=== PATIENT | female | born 1995 | race Caucasian/White ===

== ENCOUNTER 2018-12-29 11:28 | Inpatient (IN) | payer BC ==
[~2018-12-29] VITALS: Ht 170.2 cm; Wt 139.5 kg
[2018-12-30] VITALS (16 sets, daily range): BP systolic 100–136; BP diastolic 54–81; PULSE 69–88; TEMP 97.9
--- NOTE | 2018-12-30 18:50 | NUR ---
PT TO UNIT AMBULATORY WITH SPOUSE FOR SCHEDULED CYTOTEC INDUCTION. PT ORIENTED TO ROOM, CHANGED INTO GOWN. VS OBTAINED, SVE PERFORMED AND EFMX2 APPLIED.
[2018-12-30 22:13] LABS: BASO % 0.3 % (0.0-2.0); EOS % 0.3 % (0-4.0); GRAN # 8.2 (1.4-6.5); GRAN % 72.1 % (42.2-75.2); HEMOGLOBIN 11.4 g/dl (12.5-16.0); LYMPH # 2.5 (1.2-3.4); LYMPH % 22.1 % (20.0-51.0); MEAN CELL VOLUME 85 fl (80.0-100.0); MEAN CORPUSCULAR HEMOGLOBIN 27 pg (27.0-31.0); MEAN CORPUSCULAR HGB CONC 32 g/dl (33.0-37.0); MEAN PLATELET VOLUME 11.8 fl (7.4-10.4); MONO # 0.6 (0.1-0.6); MONO % 4.9 % (1.7-9.3); PLATELET COUNT 280 K/mm3 (130-400); RED BLOOD COUNT 4.23 M/mm3 (4.10-5.30); REDCELL DISTRIBUTION WIDTH-CV 15.2 % (11.5-14.5)
[2018-12-30 22:17] LABS: HEMATOCRIT 35.9 % (37.0-47.0)
[2018-12-31] VITALS (76 sets, daily range): BP systolic 88–148; BP diastolic 51–83; PULSE 57–86; TEMP 97.3–98.2
--- NOTE | 2018-12-31 01:15 | NUR ---
DIFFICULTY TRACING CONTRACTION PATTERN DUE TO MATERNAL POSITION IN RIGHT LATERAL. TOCO ADJUSTED.
--- NOTE | 2018-12-31 01:30 | NUR ---
CONTINUED DIFFICULTY TRACING CONTRACTION PATTERN DUE TO MATERNAL POSITION. PT STATES "FEELING" CONTRACTIONS BUT THEY ARE NOT PAINFUL.
--- NOTE | 2018-12-31 02:00 | NUR ---
[id number]- DIFFICULTY TRACING FHT'S DUE TO MATERNAL POSITION CHANGE TO LEFT LATERAL. THIS NURSE IN ROOM TO ADJUST US. FM AUDIBLE DURING THIS TIME. CONTINUED DIFFICULTY TRACING CONTRACTION PATTERN DUE TO MATERNAL POSITION. TOCO ADJUSTED.
--- NOTE | 2018-12-31 06:30 | NUR ---
0615- FHR tracing intermittent due to maternal position. 0625- EFM and TOCO off, Pt up to bathroom. Plan to start Pitocin per MD order once Pt returns.
--- NOTE | 2018-12-31 08:00 | NUR ---
0746- Pt repositions self to RL, FHR tracing scratchy and intermittent and TOCO not tracing well. RN at bedside, adjusting monitor.
--- NOTE | 2018-12-31 08:30 | NUR ---
0823- TOCO adjusted, not tracing well due to maternal position.
--- NOTE | 2018-12-31 08:45 | NUR ---
0840- FHR tracing intermittent due to maternal position, RN at bedside, adjusting monitor. Directed Pt to reposition slightly after approximately 7mins of trying to find FHT. TOCO adjusted at this time.
--- NOTE | 2018-12-31 14:00 | NUR ---
1354- RN at bedside, Pt repositioned to , IVF bolus initiated, SVE. Pitocin off. O2 on via mask at 10L. Pt reassured.
--- NOTE | 2018-12-31 16:00 | NUR ---
1550- Pt complete/+2. Pt and room prepped for delivery. Talamantes out without difficulty. 1558- Pt begins pushing with UCs, great effort and progress noted.
--- NOTE | 2018-12-31 16:30 | NUR ---
1607- Pitocin restarted at 2mu due to irregular UCs. Pt continues pushing with UCs. 1617- Pt instructed to stop pushing, going to wait for Dr Mckeon to come for delivery. Pitocin off. Pt comfortable with epidural.
--- NOTE | 2018-12-31 16:45 | NUR ---
163- Dr Mckeon and Alcon, Nursery RN at bedside. Pt and room prepped for delivery. 1640- IUPC removed without difficulty. Pt pushes with UCs. 1644- of viable male . Infant to mother's chest where dried and stimulated, tended to by Nursery RN. Cord clamped and cut. Cord segment obtained, cord blood obtained. 1648- Spontaneous delivery of placenta, Pitocin started at 333ml/hr. Fundus massaged to firm. First degree laceration repaired by . Pericare completed, ice pack to vagina. Pt repositioned to high-fowlers, baby skin-2-skin.
[2019-01-01 00:10] VITALS: BP 104/42; PULSE 74; TEMP 98.3
[2019-01-01 04:05] VITALS: BP 129/83; PULSE 81; TEMP 97.6
[2019-01-01 07:40] VITALS: BP 118/72; PULSE 77; TEMP 97.6
[2019-01-01 12:50] VITALS: BP 147/86; PULSE 68; TEMP 98.4
[2019-01-01 16:10] VITALS: BP 129/72; PULSE 89; TEMP 97.7
[2019-01-01 20:30] VITALS: BP 133/81; PULSE 96
[2019-01-02 07:30] VITALS: BP 131/83; PULSE 83; TEMP 97.7
--- NOTE | 2019-01-02 09:15 | NUR ---
0915- This RN assisted mom with breast pump set-up. Pt encouraged to pump every 3hrs for 20mins. Questions answered and Pt verbalizes understanding.
[2019-01-02] MEDS ORDERED: IBU600 MG PO (09:24)
== END 2019-01-02 11:15 | disposition home or self-care (01) | DRG 807 ==
LOC: OB 11:28 → LDR 12-30 18:47 → OB 12-30 18:47 → LDR 12-30 18:48 → OB 12-31 07:04
PROVIDERS: ADMIT Obstetrics & Gynecology
PROC: 10E0XZZ Delivery of Products of Conception, External Approach (ICD-10-PCS; principal; 2018-12-31)
PROC: 3E0P7VZ Introduction of Hormone into Female Reproductive, Via Natural or Artificial Opening (ICD-10-PCS; 2018-12-31)
PROC: 10907ZC Drainage of Amniotic Fluid, Therapeutic from Products of Conception, Via Natural or Artificial Opening (ICD-10-PCS; 2018-12-31)
PROC: 3E033VJ Introduction of Other Hormone into Peripheral Vein, Percutaneous Approach (ICD-10-PCS; 2018-12-31)
PROC: 0HQ9XZZ Repair Perineum Skin, External Approach (ICD-10-PCS; 2018-12-31)
PROC: 10H07YZ Insertion of Other Device into Products of Conception, Via Natural or Artificial Opening (ICD-10-PCS; 2018-12-31)
PROC: 10H073Z Insertion of Monitoring Electrode into Products of Conception, Via Natural or Artificial Opening (ICD-10-PCS; 2018-12-31)
DX: O13.4 Gestational [pregnancy-induced] hypertension without significant proteinuria, complicating childbirth (principal); Z37.0 Single live birth; O99.214 Obesity complicating childbirth; O70.0 First degree perineal laceration during delivery; Z3A.39 39 weeks gestation of pregnancy; O69.81X0 Labor and delivery complicated by cord around neck, without compression, not applicable or unspecified; E66.01 Morbid (severe) obesity due to excess calories
CPT/HCPCS: J2590; J2791; J7120

== ENCOUNTER 2019-11-24 18:46 | Inpatient (IN) | payer BC ==
[~2019-11-24] VITALS: Ht 170.2 cm; Wt 130.0 kg
[~2019-11-24 18:46] MED LIST: IBU600 MG PO
[2019-11-24 20:39] LABS: BASO # 0.1 (0.0-0.2); BASO % 0.6 % (0.0-2.0); EOS # 0.1 (0.0-0.7); EOS % 0.6 % (0-4.0); GRAN # 6.7 (1.4-6.5); GRAN % 73.7 % (42.2-75.2); HEMATOCRIT 46.3 % (37.0-47.0); HEMOGLOBIN 14.6 g/dl (12.5-16.0); LYMPH # 1.7 (1.2-3.4); MEAN CELL VOLUME 85 fl (80.0-100.0); MEAN CORPUSCULAR HEMOGLOBIN 27 pg (27.0-31.0); MEAN CORPUSCULAR HGB CONC 32 g/dl (33.0-37.0); MEAN PLATELET VOLUME 10.8 fl (7.4-10.4); MONO # 0.5 (0.1-0.6); MONO % 5.8 % (1.7-9.3); PLATELET COUNT 318 K/mm3 (130-400); RED BLOOD COUNT 5.48 M/mm3 (4.10-5.30); REDCELL DISTRIBUTION WIDTH-CV 14.3 % (11.5-14.5)
[2019-11-24 20:51] LABS: ALBUMIN 4.5 gm/dL (3.5-5.0); BILIRUBIN,TOTAL 3.7 mg/dL (0.0-1.0); C-REACTIVE PROTEIN 0.9 mg/dL (0.0-0.9); CALCIUM 9.5 mg/dL (8.4-10.2); CREATININE, serum 0.71 (0.52-1.25); POTASSIUM 3.6 mmol/L (3.4-5.0); TOTAL PROTEIN 8.1 gm/dL (6.4-8.2)
[2019-11-24 22:45] LABS: COLLECTION METHOD CLEAN CATCH
[2019-11-24 22:50] LABS: MUCOUS Present /lpf; PH 6 (5-8); SQUAMOUS EPITHELIAL 0-2 /hpf; URINE APPEARANCE Clear; URINE BACTERIA None Seen /hpf; URINE BILIRUBIN Negative (NEGATIVE); URINE BLOOD 3+ (NEGATIVE); URINE COLOR Amber; URINE GLUCOSE Negative (NEGATIVE); URINE KETONE 1+ (NEGATIVE); URINE LEUKOCYTE ESTERASE Negative (NEGATIVE); URINE NITRATE Negative (NEGATIVE); URINE PROTEIN(semi-quant) Negative (NEGATIVE); URINE UROBILINOGEN Negative (NEGATIVE)
[2019-11-24 23:00] LABS: INR 1.2 (0.8-3.0); PROTHROMBIN TIME 12.9 SECONDS (9.7-12.8)
[2019-11-24 23:23] VITALS: BP 117/58; PULSE 68; TEMP 98
--- NOTE | 2019-11-24 23:54 | NUR ---
RECEIVED FROM ER PER W/C, YOUNG FEMALE WITH DX ABD PAIN/PANCREATITIS. IS ALERT AND ORIENTED X4. HAS SL TO RIGHT FOREARM, FLUSHES WELL, CONNECTED TO IVF AND IV FLAGYL AT THIS TIME.
--- NOTE | 2019-11-24 23:54 | NUR ---
MEDICATED WITH MORPHINE 2MG IVP FOR PAIN TO UPPER RT ABD 11/14. ADMISSION QUESTIONS COMPLETE. WILL MONITOR FOR CHANGES.
--- NOTE | 2019-11-25 00:30 | NUR ---
PT VOIDS 450CC OF ORANGE TINGED URINE, WITH FEW CLOTS PT IS CURRENTLY ON HER PERIOD.
--- NOTE | 2019-11-25 03:05 | NUR ---
PT REPORTS NAUSEA, MEDICATED WITH ZOFRAN 4MG IVP, DENIES PAIN AT THIS TIME.
[2019-11-25 04:31] VITALS: BP 131/70; PULSE 72; TEMP 98.3
--- NOTE | 2019-11-25 06:00 | NUR ---
Still having nausea, no emesis. Denies pain at this time. Is NPO.
--- NOTE | 2019-11-25 07:36 | NUR ---
CALLED AND GAVE ORDERS FOR A CMP, CBC AND LIPASE TO BE DONE THIS MORNING. NOTIFIED THAT THE PATIENT IS HAVING ISSUES WITH NAUSEA. PHENERGAN 12.5MG IV Q6H PRN TORB TO THIS NURSE.
[2019-11-25 07:55] VITALS: BP 125/67; PULSE 94; TEMP 98.5
[2019-11-25 09:19] LABS: BASO % 0.2 % (0.0-2.0); EOS % 0.5 % (0-4.0); GRAN # 6.6 (1.4-6.5); GRAN % 78.6 % (42.2-75.2); HEMATOCRIT 43.2 % (37.0-47.0); HEMOGLOBIN 13.3 g/dl (12.5-16.0); LYMPH # 1.4 (1.2-3.4); LYMPH % 16.7 % (20.0-51.0); MEAN CELL VOLUME 87 fl (80.0-100.0); MEAN CORPUSCULAR HEMOGLOBIN 27 pg (27.0-31.0); MEAN CORPUSCULAR HGB CONC 31 g/dl (33.0-37.0); MEAN PLATELET VOLUME 11.2 fl (7.4-10.4); MONO # 0.3 (0.1-0.6); MONO % 3.9 % (1.7-9.3); PLATELET COUNT 267 K/mm3 (130-400); RED BLOOD COUNT 4.96 M/mm3 (4.10-5.30); REDCELL DISTRIBUTION WIDTH-CV 14.6 % (11.5-14.5)
[2019-11-25 09:31] LABS: ALBUMIN 3.8 gm/dL (3.5-5.0); BILIRUBIN,TOTAL 1.1 mg/dL (0.0-1.0); CALCIUM 8.7 mg/dL (8.4-10.2); CREATININE, serum 0.65 (0.52-1.25); POTASSIUM 3.8 mmol/L (3.4-5.0)
[2019-11-25 11:26] VITALS: BP 131/53; PULSE 80; TEMP 97.9
--- NOTE | 2019-11-25 11:45 | NUR ---
CONSENT FORM SIGNED AND ON PATIENT CHART. PATIENT WORKING ON CLEAR LIQUIDS. IV PAIN MEDICATION GIVEN FOR PAIN RATED A 6/10 ON A 0-10 SCALE. PRESENT AT THE BEDSIDE. CALL LIGHT WITHIN REACH. NO NEEDS AT THIS TIME.
--- NOTE | 2019-11-25 14:25 | NUR ---
Plan: Plan to return home with Andrew Assessment: SW met with patient about DC plan. Patient reports that she resides in [facility] with her . Patient reports that her pcp is Dr. Tracy White. Patient reports that she obtains her medications from [facility] in [facility]. Patient reports that she does not have a POA and does not require any DME use. Patient denies having any concerns about medications and reports her care is good. Action: SW educated patient on services and community supports. No additional concerns identified at this time.
[2019-11-25 16:00] VITALS: BP 129/80; PULSE 78; TEMP 98.6
--- NOTE | 2019-11-25 18:49 | NUR ---
REPORT GIVEN TO JOSE R CRYSTAL.
[2019-11-25 21:16] VITALS: BP 115/68; PULSE 86; TEMP 98.3
--- NOTE | 2019-11-25 21:30 | NUR ---
New IV placed to right hand by Melvina ODELL. IVF infusing without problem. Pt denies nausea or pain. Is aware she will be NPO after midnight.
--- NOTE | 2019-11-25 21:51 | NUR ---
IV SITE TO LEFT FOREARM WITH START OF SWELLING. DC'D AT THIS TIME. ATTEMPTED NEW SITE WITHOUT SUCCESS. PT IN SHOWER, WILL ATTEMPT NEW SITE AFTER SHE IS DONE.
[2019-11-25 23:32] VITALS: BP 106/55; PULSE 71; TEMP 98.2
[2019-11-26 04:45] VITALS: BP 122/65; PULSE 76; TEMP 98.5
--- NOTE | 2019-11-26 05:04 | NUR ---
Pt has been NPO since midnight. Denies pain or nausea at this time.
[2019-11-26 07:40] LABS: ALBUMIN 3.6 gm/dL (3.5-5.0); BILIRUBIN,TOTAL 0.8 mg/dL (0.0-1.0); CALCIUM 8.5 mg/dL (8.4-10.2); CREATININE, serum 0.59 (0.52-1.25); POTASSIUM 3.6 mmol/L (3.4-5.0); TOTAL PROTEIN 6.6 gm/dL (6.4-8.2)
--- NOTE | 2019-11-26 08:30 | NUR ---
Patient sitting up in bed. A&Ox4. Denies pain and discomfort. VSS. IV CDI, fluids infusing. Patient NPO for procedure. No further needs expressed from patient. Call light within reach
[2019-11-26 08:35] VITALS: BP 121/73; PULSE 62; TEMP 97.9
--- NOTE | 2019-11-26 09:06 | NUR ---
Patient taken by bed to OR. at the bedside. No further needs expressed from the patient.
[2019-11-26 11:06] VITALS: BP 130/68; PULSE 81
--- NOTE | 2019-11-26 11:22 | NUR ---
Patient to room 348 by bed from PACU. at the bedside. Patient A&O, drowsy but able to answer questions. Denies pain, reports discomfort in abdomen. VSS. IV CDI, fluids infusing. Patient standby assist to bathroom. Post op VS monitored. CMS WNL. No further needs expressed from patient. Call light within reach
[2019-11-26 11:36] VITALS: BP 132/81; PULSE 67
[2019-11-26 12:06] VITALS: BP 128/70; PULSE 72
--- NOTE | 2019-11-26 12:31 | NUR ---
Discharge paperwork reviewed with patient. Patient verbalized an understanding to follow doctors orders. IV removed, tip intact. Lap sitesx4 CDI. Reporting discomfort with movement. at the bedside. No further needs expressed from patient. Call light within reach
--- NOTE | 2019-11-26 12:52 | NUR ---
Patient transferred by nursing staff by wheelchair to vehicle. Discharge paperwork and personal belongings with patient. No further needs expressed from patient.
[2019-11-26 16:15] VITALS: BP 129/65; PULSE 80; TEMP 97
== END 2019-11-26 12:50 | disposition home or self-care (01) | DRG 419 ==
LOC: COL.ER 18:46 → SURG 22:21
PROVIDERS: Physician Assistant; ADMIT Surgery
PROC: BF141ZZ Fluoroscopy of Gallbladder, Bile Ducts and Pancreatic Ducts using Low Osmolar Contrast (ICD-10-PCS; 2019-11-26)
PROC: 0FT44ZZ Resection of Gallbladder, Percutaneous Endoscopic Approach (ICD-10-PCS; principal; 2019-11-26 09:30)
DX: K85.10 Biliary acute pancreatitis without necrosis or infection (principal)
CPT/HCPCS: J0330; J0696; J1170; J2270; J2405; J2704; J3010; J7030; Q9967

== ENCOUNTER 2021-10-15 08:42 | Inpatient (IN) | payer BC ==
[2021-10-15] VITALS (29 sets, daily range): BP systolic 119–173; BP diastolic 59–93; PULSE 70–103; TEMP 97.5–99
[~2021-10-15] VITALS: Ht 170.2 cm; Wt 145.5 kg
--- NOTE | 2021-10-15 08:45 | NUR ---
992245.5, G3L1 arrives on unit with c/o regular ctx since 0600. Ambulatory to LDR2. Changes into clean gown. Reports normal movement. Denies any LOF or VB. 0852EFM explained and placed. Assessment completed. VS obtained. 0900SVE /3, VINCENT. Plan of care reviewed with patient and family who verbalize understanding. 904Dr. Wan on unit and updated on pt. See phycician notification. Patient resting with call light within reach.
[2021-10-15] MEDS ORDERED: PEPCID 20MG TAB20 MG PO (09:17)
[2021-10-15] MEDS ORDERED: ZYRTEC 10MG10 MG PO (09:17)
[2021-10-15] MEDS ORDERED: PRENATAL TABLET PO (09:18)
--- NOTE | 2021-10-15 10:10 | NUR ---
1010EFM off and pt ambulatory in halls.
--- NOTE | 2021-10-15 11:00 | NUR ---
1100SVE 2, head well applied to cervix. Plan of care discussed. 1105Dr. Wan updated on pt. See physician notification.
[2021-10-15 11:49] LABS: BASO % 0.1 % (0.0-2.0); EOS % 0.1 % (0.0-4.0); GRAN # 10.7 K/mm3 (1.4-6.5); GRAN % 80.2 % (42.2-75.2); LYMPH # 1.7 K/mm3 (1.2-3.4); LYMPH % 12.9 % (20.0-51.0); MEAN CELL VOLUME 79 fl (80.0-100.0); MEAN CORPUSCULAR HEMOGLOBIN 25 pg (27-31); MEAN CORPUSCULAR HGB CONC 31 g/dl (33.0-37.0); MEAN PLATELET VOLUME 12.1 fl (7.4-10.4); MONO # 0.8 K/mm3 (0.1-0.6); MONO % 6.3 % (1.7-9.3); PLATELET COUNT 266 K/mm3 (130-400); RED BLOOD COUNT 4.04 M/mm3 (4.10-5.30); REDCELL DISTRIBUTION WIDTH-CV 16.9 % (11.5-14.5)
--- NOTE | 2021-10-15 12:30 | NUR ---
1219- EL Gutierrez at bedside. Pt sitting on side of bed for epidural placement. O2 sat monitor on and tracing. 1228- Test dose, see anesthesia record. 1233- SPO2 monitor off. Pt assisted to semi-fowlers with WL. Pt tolerated well. EFM and TOCO adjusted. RN remains at bedside with Pt.
--- NOTE | 2021-10-15 15:41 | NUR ---
1534- Foly removed without difficulty. Room prepped for delivery. Bridgett Nursery RN at bedside. 1538- Dr Blas at bedside. Pt turns supine and feet into foot plates, top of head noted at vaginal opening. 1541- of viable male . Spontaneous crying noted, to mother's abd where tended to by Nursery RN. 1547- Spontaneous delivery of placenta, Pitocin started at 333ml/hr. Fundus massaged to firm by . Perineum intact. Pericare completed. Chux changed. Ice pack to perineum. Pt assisted to high fowlers.
[2021-10-15] MEDS ORDERED: MOTRIN 800800 MG/TAB PO (17:37)
[2021-10-16 02:45] VITALS: BP 139/82; PULSE 82; TEMP 98.3
[2021-10-16 08:20] VITALS: BP 133/73; PULSE 70; TEMP 97.8
--- NOTE | 2021-10-16 09:06 | NUR ---
Initial visit; Family thanked Dulser for offering congratulations and God's blessings for the of their son. Dulser thanked family for choosing [facility].
[2021-10-16 16:30] VITALS: BP 134/79; PULSE 75; TEMP 97.8
== END 2021-10-16 18:25 | disposition home or self-care (01) | DRG 807 ==
LOC: LDRO 08:42 → LDR 11:05 → OB 11:05
PROVIDERS: Obstetrics & Gynecology; ADMIT Obstetrics & Gynecology
PROC: 10E0XZZ Delivery of Products of Conception, External Approach (ICD-10-PCS; principal; 2021-10-15)
DX: O99.824 Streptococcus B carrier state complicating childbirth (principal); Z37.0 Single live birth; O31.23X0 Continuing pregnancy after intrauterine death of one fetus or more, third trimester, not applicable or unspecified; O99.013 Anemia complicating pregnancy, third trimester; D64.9 Anemia, unspecified; Z3A.37 37 weeks gestation of pregnancy; Z86.16 Personal history of COVID-19
CPT/HCPCS: J2540; J2791; J7120